=== PATIENT | male | born 1995 ===

== ENCOUNTER 2018-04-07 13:04 | Emergency (ER) | payer OTHER ==
[2018-04-07 13:14] VITALS: RESP 15; TEMP 98.7
--- NOTE | 2018-04-07 14:14 | C.PDOC ---
History Of Present Illness Pt got dizzy while getting his blood drawn at a clinic today. Denies LOC. Time Seen by Provider: 04/07/18 13:44 Chief Complaint (Nursing): Dizziness/Lightheaded History Per: Patient, EMS Onset/Duration Of Symptoms: Other (Just [facility] [employer]) Current Symptoms Are (Timing): Gone Number Of Syncopal Episodes: 1 Activity At Onset Of Symptoms: Other (Blood draw) Fall Associated With With Symptoms: No Severity: Moderate Additional History Per: Prior Records - Symptoms Of CVA Recent Head Trauma: No Past Medical History Reviewed: Historical Data, Nursing Documentation, Vital Signs Vital Signs: Last Vital Signs Temp 98.7 F 04/07/18 13:10 Pulse 62 04/07/18 13:10 Resp 15 04/07/18 13:10 BP 123/80 04/07/18 13:10 Pulse Ox 100 04/07/18 13:10 - Medical History PMH: No Chronic Diseases Family History: States: Unknown Family Hx - Social History Hx Alcohol Use: No Hx Substance Use: No - Immunization History Hx Tetanus Toxoid Vaccination: No Hx Influenza Vaccination: No Hx Pneumococcal Vaccination: No Review Of Systems Except As Marked, All Systems Reviewed And Found Negative. Constitutional: Negative for: Fever, Weakness Cardiovascular: Negative for: Chest Pain, Palpitations Respiratory: Negative for: Shortness of Breath, Hemoptysis Gastrointestinal: Negative for: Vomiting, Abdominal Pain Musculoskeletal: Negative for: Neck Pain, Leg Pain Skin: Positive for: Rash (for 1 month) Neurological: Negative for: Weakness, Numbness, Seizures, Headache Physical Exam - Physical Exam Appears: Non-toxic, No Acute Distress Skin: Warm, Dry, Rash Head: Atraumatic, Normacephalic Eye(s): bilateral: Normal Inspection, PERRL, EOMI Neck: Normal ROM, Supple Cardiovascular: Rhythm Regular Respiratory: Normal Breath Sounds, No Accessory Muscle Use Gastrointestinal/Abdominal: Soft, No Tenderness Extremity: Normal ROM, No Pedal Edema, No Calf Tenderness Neurological/Psych: Oriented x3, Normal Motor, Normal Sensation ED Course And Treatment ECG: Interpreted By Me, Viewed By Me ECG Rhythm: Sinus Bradycardia, Nonspecific Changes Rate From EC O2 Sat by Pulse Oximetry: 100 Pulse Ox Interpretation: Normal Progress Note: Pt is currently asymptomatic. Disposition Counseled Patient/Family Regarding: Studies Performed, Diagnosis, Need For Followup - Disposition Disposition: HOME/ ROUTINE Disposition Time: 14:15 Condition: STABLE Additional Instructions: Follow up with your doctor for further evaluation and treatment. Return to the ER if you pass out, develop chest pain, shortness of breath, palpitations, dizziness, worsening of symptoms or if you have any other concerns. Instructions: Vasovagal Response (DC) Print Language: BENGALI - Clinical Impression Clinical Impression: Vaso-vagal reaction
[2018-04-07 14:25] VITALS: BP 108/68; PULSE 67; O2SAT 99
--- NOTE | 2018-04-10 15:35 | CARD ---
APPROVED REPORT EKG Measurement Heart [id number] <Conclusion> Sinus bradycardia Rightward axis Early repolarization Borderline ECG
== END 2018-04-07 14:24 | disposition home or self-care (01) ==
LOC: C.ER 13:04
DX: R55 Syncope and collapse (principal)